=== PATIENT | female | born 1995 | race African-American/Black ===

== ENCOUNTER 2019-11-18 13:36 | Inpatient (IN) | payer OTHER, SELFPAY ==
[2019-11-18] VITALS (66 sets, daily range): BP systolic 97–165; BP diastolic 63–110; PULSE 56–165; RESP 18; TEMP 36.5–37; O2SAT 93–100; BMI 36.8
--- NOTE | ~2019-11-18 | US_ITS ---
EXAMINATION: US OB follow up w BPP DATE: 11/18/2019 15:35 INDICATION: Third trimester . Evaluate weight, presentation, growth percentile and bio physical profile. TECHNIQUE: Real-time pelvic ultrasound was performed. The interpreting radiologist was not present fo r the study. COMPARISON: None. FINDINGS: There is a single living fetus in vertex presentation. The placenta is anterior. heart rate is 133 beats per minute (bpm). Oligohydramnios with amniotic fluid index of 3.9 cm which is greater malinda n 3 standard deviations below the mean. (2.5th%-97.5%: 6.4-25.5 at 39 weeks estimated gestational age ) Biophysical profile performed by the technologist: breathing (30 sec sustained breathing in 30 minutes): 2 out of 2 movement (3 gross body movements in 30 minutes): 2 out of 2 tone (one episode of yrjmygs-zerxzplzi-cfvdjoh limb movement): 2 out of 2 Amniotic fluid pocket (2 cm): 2 out of 2 Total score: 6 out of 8 IMPRESSION: 1. Single living fetus in vertex presentation with heart rate of 133 bpm. 2. Oligohydramnios with amniotic fluid index of 3.9 cm. Correlate for leaking fluids. 3. Biophysical profile 8 out of 8. Reviewed, dictated and finalized at location B. IMPRESSION: 1. Single living fetus in vertex presentation with heart rate of 133 bpm. 2. Oligohydramnios with amniotic fluid index of 3.9 cm. Correlate for leaking f luids. 3. Biophysical profile 8 out of 8.
[2019-11-18 16:07] LABS: Add Urine Microscopic? YES; Appearance Urine Cloudy (Clear); Bacteria Urine 4+ /hpf; Bilirubin Urine Negative (Negative); Blood Urine Negative (Negative); Color Urine Yellow (Yellow); Glucose Urine UA Negative (Negative); Ketones Urine Trace mg/dL (Negative); Leukocyte Esterase Ur 3+ LEU/UL (NEGATIVE); Mucus Urine Rare /lpf; Nitrate Urine Negative (Negative); Protein Urine Negative (Negative); Specific Grav Ur 1.011 (1.001-1.035); Squamous Epithelial Cell Urine Many /hpf (Few); Urobilinogen Urine Negative mg/dL (<2.0)
[2019-11-18 16:25] LABS: Basophils Percent Auto 0.3 % (0.2-1.2); Eosinophils Absolute Auto 0.1 K/mm3 (0-0.3); Eosinophils Percent Auto 0.8 % (0-4.4); Hematocrit 37.1 % (37.0-47.0); Hemoglobin 11.5 g/dL (12.0-15.0); Immature Granulocyte Absolute 0.03 K/mm3 (0.00-0.031); Immature Granulocyte Percent A 0.4 % (0-0.5); Immature Platelet Fraction Pct 3.6 % (0.9-11.2); Lymphocytes Absolute Auto 1.34 K/mm3 (0.9-3.2); Lymphocytes Percent Auto 18.1 % (18.3-44.2); Mean Corpuscular Hemoglobin 21.2 pg (26-34); Mean Corpuscular Volume 68.3 fl (80-100); Mean Platelet Volume 10.9 fl (7.4-10.4); Monocytes Absolute Auto 0.4 K/mm3 (0.1-0.6); Neutrophils Absolute Auto 5.5 K/mm3 (1.3-6.7); Neutrophils Percent Auto 74.4 % (45.5-73.1); Platelet Count Result 242 k/mm3 (150-375); Red Blood Count 5.43 M/mm3 (4.2-5.4); White Blood Count 7.4 K/mm3 (4.5-10.0)
[2019-11-18 16:32] LABS: Creatinine Urine 76.2 mg/dL; Total Protein Urine Random 13 mg/dL
[2019-11-18 16:37] LABS: Alanine Aminotransferase 14 U/L (4-35); Albumin Level 3.5 g/dL (3.5-5.1); Alkaline Phosphatase 155 U/L (38-126); Anion Gap 5 mmol/L (8-16); Aspartate Amino Transferase 17 U/L (14-36); Bilirubin,Total 0.3 mg/dL (0.2-1.3); Blood Urea Nitrogen 6 mg/dL (7-17); Calcium 8.8 mg/dL (8.4-10.2); Carbon Dioxide 22 mmol/L (22-30); Chloride 108 mmol/L (98-107); Estimated Glomerular Filt Rate > 60; Glucose 77 mg/dL (65-105); Potassium 3.7 mmol/L (3.4-5.0); Sodium 135 mmol/L (137-145); Uric Acid 6.3 mg/dL (2.5-7.5)
--- NOTE | 2019-11-18 16:57 | LDADM ---
This patient, Aishwarya Robledo, was admitted to Labor/Delivery/Recovery 105 on 11/18/19 at 13:36. Plans for labor, pain management and were discussed with patient. Patient/family oriented to hospital policies and general routines including ID bracelet, bed and alarms, visiting hours, pain management, procedures, bathroom and other care routines, personal items, smoking policy, room service/diet and guest tray routines, security routines, and visiting hours. Patient/Family are encouraged to report perceived risks to care and to ask questions if they do not understand what they are told or what they should do. See OBIX for further documentation.
--- NOTE | 2019-11-18 16:57 | PC.NURSE ---
1458- called,informed pt is here for her NST and BPP and her bp's are running 150's/90's. Orders received to do PIH labs with intention to induce labor tonight and order EFW with BPP.
[2019-11-18 17:17] LABS: HIV 1/2 Ab P24 Ag Result Negative (Negative)
--- NOTE | 2019-11-18 17:33 | PC.NURSE ---
1733-US tech called to inform the US report is different then the written results we were given, informed the DR disagreed with leif and the BPP score is 8/8. Will notify
--- NOTE | 2019-11-18 17:35 | PC.NURSE ---
8993- called, informed BPP is 8/8 with a score of 0 for amniotic fluid, plans made to induce pt tonight will come over after office to discuss with patient and verify presentation.
[2019-11-18] MEDS: LACTATED RINGERS 1,000 ML 125 ML IV CONT (18:00)
--- NOTE | 2019-11-18 18:01 | PM.IMHP ---
H&P: HPI History of Present Illness Date/Time: 11/18/19 18:01 Chief complaint: NST Narrative: Aishwarya Robledo is a 23 year old female with Learning disability G1 at 39.3 weeks with h/o BHASKAR/ sga/abn gct normal gtt 3hr sent for eval of [facility] with labs and [id number] Review of Systems Review of Systems: All systems reviewed & are unremarkable except as noted in HPI and below Constitutional: Constitutional: Reports no additional constitutional complaints Eyes: Eyes: Reports no additional eye complaints ENT: Reports system reviewed and no additional complaints, except as documented Cardiovascular: Cardiovascular: Reports no additional cardiovascular complaints Respiratory: Respiratory: Reports no additional respiratory complaints Gastrointestinal: Gastrointestinal: Reports no additional gastrointestinal complaints Genitourinary: Genitourinary: Reports no additional female genitourinary complaints Musculoskeletal: Musculoskeletal: Reports no additional musculoskeletal complaints Integumentary/Breasts: Skin/Breast: Reports system reviewed and no additional complaints, except as docu Neurologic: Reports system reviewed and no additional complaints, except as documented Psychiatric: Psychiatric: Reports no additional psychiatric complaints Endocrine: Endocrine: Reports no additional endocrine complaints Hematologic/Lymphatic: Hematologic/Lymphatic: Reports no additional hematologic/lymphatic complaints Allergic/Immunologic: Allergic/Immunologic: Reports no additional allergic/immunologic complaints [facility] Family History Family History Mother Diabetes mellitus GERD (gastroesophageal reflux disease) Grandparent Renal failure CHF (congestive heart failure) Other Unknown family medical history Social History Social History (Updated 11/18/19 @ 18:15 by Kash Ellington MD) Smoking status: Never smoker Second hand tobacco smoke exposure: No Alcohol intake: never Substance use: never Living arrangements: with family Occupation/Education: unemployed Gender identity (if verbalized by the patient): Female Sexual Orientation (if Verbalized by the Patient): Straight or Heterosexual Spiritual care concerns: No Agree to blood products: Yes Meds Home Medications and Allergies Home Medications Medication Instructions Recorded Confirmed Type No Home Medications 11/18/19 11/18/19 History Allergies Allergy/AdvReac Type Severity Reaction Status Date / Time No Known Allergies Allergy Mild Verified 04/20/09 11:23 Vital Signs Vital Signs - 24 hr 11/18/19 14:35 11/18/19 16:46 11/18/19 17:00 Temperature 98.6 F Pulse Rate 79 109 H Blood Pressure 153/110 H Blood Pressure [Left Arm] 152/94 H 11/18/19 17:01 11/18/19 17:16 11/18/19 17:31 Temperature Pulse Rate 93 81 83 Blood Pressure 152/94 H 162/85 H 162/88 H Blood Pressure [Left Arm] 11/18/19 17:46 11/18/19 18:01 Temperature Pulse Rate 79 88 Blood Pressure 154/88 H 165/91 H Blood Pressure [Left Arm] Exam Const: General: no acute distress HENMT: Head: normal to inspection Ears: hearing grossly normal bilaterally General nose exam: Normal external nose present Face and sinus: normal facial exam Mouth: Yes Normal oral and palatal mucosa present Eyes: General: appearance normal, both eyes and all related structures Neck: Neck: no JVD Chest: Chest palpation & inspection: normal inspection of the chest Breast/axilla inspection: normal inspection of the breasts Breast/axilla palpation: normal palpation of the breasts Resp: Effort & Inspection: normal respiratory effort Auscultation: clear to auscultation bilaterally Cardio: Rate: regular rate Rhythm: regular rhythm GI: Inspection: normal to inspection GI Palp: Yes Soft to palpation Percussion: Yes normal to percussion Auscultation: normal bowel sounds : External Fem
--- NOTE | 2019-11-18 18:13 | WPDANESEPPF ---
Anes - Initial Pre Proc Eval Procedure: C section Date/Time: 11/18/19 18:13 Surgeon: Kash Ellington MD Pre Op Diagnosis: NST Patient Data Age: 23 Gender: F Height: 1.73 m Weight: 110 kg Last Vital Signs Temp 37.0 C 11/18/19 17:00 Pulse 88 11/18/19 18:01 BP 165/91 H 11/18/19 18:01 Allergies Allergy/AdvReac Type Severity Reaction Status Date / Time No Known Allergies Allergy Mild Verified 04/20/09 11:23 Home Medications Medication Instructions Recorded Confirmed Type No Home Medications 11/18/19 11/18/19 History Laboratory Tests 11/18/19 11/18/19 11/18/19 15:44 15:44 15:44 WBC 7.4 K/mm3 K/mm3 (4.5-10.0) RBC 5.43 M/mm3 H M/mm3 (4.2-5.4) Hgb 11.5 g/dL L g/dL (12.0-15.0) Hct 37.1 % % (37.0-47.0) MCV 68.3 fl L fl (80-100) MCH 21.2 pg L pg (26-34) MCHC 31.0 g/dl L g/dl (32-36) RDW 19.0 % H % (11.5-14.5) Plt Count 242 k/mm3 k/mm3 (150-375) MPV 10.9 fl H fl (7.4-10.4) Immature Gran % (Auto) 0.4 % % (0-0.5) Neut % (Auto) 74.4 % H % (45.5-73.1) Lymph % (Auto) 18.1 % L % (18.3-44.2) [place] % (Auto) 6.0 % % (2.6-8.5) Eos % (Auto) 0.8 % % (0-4.4) Baso % (Auto) 0.3 % % (0.2-1.2) Lymph # (Auto) 1.34 K/mm3 K/mm3 (0.9-3.2) [place] # (Auto) 0.4 K/mm3 K/mm3 (0.1-0.6) Eos # (Auto) 0.1 K/mm3 K/mm3 (0-0.3) Baso # (Auto) 0.0 K/mm3 K/mm3 (0.0-0.1) Abs Immat Gran (auto) 0.03 K/mm3 K/mm3 (0.00-0.031) Absolute Neuts (auto) 5.5 K/mm3 K/mm3 (1.3-6.7) Absolute Nucleated RBC 0.0 K/mm3 K/mm3 (0.0-0.012) Nucleated RBC % 0.0 % % (0.0-0.2) % Immature Plt Fraction 3.6 % % (0.9-11.2) Sodium Potassium Chloride Carbon Dioxide Anion Gap BUN Creatinine Estim Creat Clear Calc Estimated GFR Glucose Uric Acid Calcium Total Bilirubin AST ALT Alkaline Phosphatase Total Protein Albumin Urine Color Yellow (Yellow) Urine Appearance Cloudy H (Clear) Urine pH 6.0 (5.0-9.0) Ur Specific [place] 1.011 (1.001-1.035) Urine Protein Negative mg/dL mg/dL (Negative) Urine Glucose (UA) Negative mg/dL mg/dL (Negative) Urine Ketones Trace mg/dL mg/dL (Negative) Ur Blood (Man) Negative (Negative) Urine Nitrate Negative (Negative) Urine Bilirubin Negative (Negative) Urine Urobilinogen Negative mg/dL mg/dL (<2.0) Ur Leukocyte Esterase 3+ JAVON/UL H JAVON/UL (NEGATIVE) Urine RBC 3-5 /hpf H /hpf (0-2) Urine WBC 10-15 /hpf H /hpf (0-3) Ur Squamous Epith Cells Many /hpf H /hpf (Few) Urine Bacteria 4+ /hpf H /hpf Urine Mucus Rare /lpf /lpf U Random Total Protein 13 mg/dL mg/dL Urine Creatinine 76.2 mg/dL mg/dL RPR HIV 1&2 Ab/P24 Ag 4thGn Blood Type Antibody Screen 11/18/19 11/18/19 11/18/19 15:44 15:44 15:44 WBC RBC Hgb Hct MCV MCH MCHC RDW Plt Count MPV Immature Gran % (Auto) Neut % (Auto) Lymph % (Auto) [place] % (Auto) Eos % (Auto) Baso % (Auto) Lymph # (Auto) [place] # (Auto) Eos # (Auto) Baso # (Auto) Abs Immat Gran (auto) Absolute Neuts (auto) Absolute Nucleated RBC Nucleated RBC %
--- NOTE | 2019-11-18 18:20 | PM.OBPNLAB ---
Pain Control Date/time seen: 11/18/19 18:20 Comments: 23yo AAF G1 with PIH and SGA found to have compound presentation Pelvic Exam Dilation (cm): 0 Effacement (%): 0 station: -4 Amniotic membrane status: Intact Comments: ultrasound at bedside COMPOUND presentation Hand above head with CAN unstable lie Contractions Monitor mode: None Status status: Category l Assessment and Plan Assessment: other (Compound presentation at 39 weeks with PIH) Plan: (primary) and other (spinal)
--- NOTE | 2019-11-18 18:24 | WPDHPUPDATE1 ---
History and Physical Update Update Date/Time: 11/18/19 18:24 History and Physical has been reviewed, including an updated exam of the patient. There are NO changes in the patient's condition. Risks, benefits, and alternatives have been discussed and questions answered. Patient agrees to proceed with procedure. Primary c section under spinal for Compound presentation
[2019-11-18] MEDS: ceFAZolin 2 GM/D5W 50 ML 2 GM/50 ML BAG IVPB (18:35)
[2019-11-18] MEDS: diphenhydrAMINE HCl INJ 50 MG/ML VIAL 12.5 MG IV PUSH (20:09)
--- NOTE | 2019-11-18 20:35 | PM.OBPRVD ---
OB - Delivery Note Procedure Delivery date: 11/18/19 Procedure: Procedures Operation Date: 11/18/19 18:00 Actual Procedures Side Surgeon p Section Kash Ellington MD Intrapartal events: Abnormal Presentation Delivery monitor: external FHT and external uterine Route of delivery: Specimen: Yes Estimated blood loss (mL): 610 Anesthesia type: Spinal Disposition: floor Baby Date of : 11/18/19 Time of : 18:49 Weeks of gestation at delivery: 39 gender: Male Weight (pounds): 7 Weight (ounces): 4 presentation: vertex (compound hand above head ) position: Left Occiput Transverse Placenta delivery description: Manual Removal cord vessel description: 3 Vessels and Nuchal Cord score one minute: 8 score five minutes: 9
--- NOTE | 2019-11-18 20:39 | PM.PROC ---
Procedure Note - Detailed Date of procedure: 11/18/19 Pre-op diagnosis: NST Term SGA Malpresentation compound hand above head bordeerline intellectual disability BHASKAR Post-op diagnosis: same (delivered male ) Procedure performed: Primary Low transverse c section with delivery of viable male and placenta Description of procedure: Patient was taken to the operating room after informed consent obtained and she was given a spinal anesthetic. Lane catheter was inserted and the abdomen was prepped and draped in usual sterile fashion and a time-out was performed. The abdomen was checked with an Allis clamp and adequate anesthesia was noted. A Pfannenstiel incision was then made to the skin and the abdomen was opened in layers using electrocautery for hemostasis the fascia was extended bilaterally and undermined inferiorly and superiorly with electrocautery and the rectus muscles were then in the midline. The peritoneum was incised and extended inferiorly and superiorly and then a transverse incision was made to the lower uterine segment. Sarah clamp was then used to open the uterus and clear fluid was obtained compound Presentation was identified and and the arm and hand were swept across the chest anteriorly and the vertex was then delivered via the abdominal incision. nuchal cord x1 was reduced Nose and Throat bulb suction cord was clamped and cut and the was handed to the nursery nurse in attendance scores of 8 and 9 at 1 and 5 minutes spontaneous respirations and cry of the viable male infant delivered at 6:49 p.m. weight 7 lb 4 oz 20 in long taken to the nursery in stable condition. Section of the cord was then obtained for cord gases and cord blood was obtained and the placenta was then delivered intact with a three-vessel cord and the uterus contracted well with Pitocin given intravenously and 10 units in the uterus myometrium. The uterus was externalized blood clots and membranes removed from the intrauterine cavity hemostasis excellent. The uterine incision was then repaired in 2 layers with 0 Vicryl suture in a running interlocking fashion with the 2nd being an imbricating stitch. Irrigation was then performed blood clots removed from the cul-de-sac both lateral gutters and the uterus was returned to the peritoneal cavity. The sponge needle and instrument counts were correct and the anterior peritoneum and rectus muscles were reapproximated with 0 Vicryl suture in a running fashion. The fascia was then closed with 2. Quill SRS system bilaterally. Jose M's fascia was reapproximated with 2 O plain in a running fashion and then the skin was closed with absorbable oriana called insorb. Dermabond was used to the skin and a sterile dressing was applied and the patient was taken to the recovery room in stable condition. The sponge needle and instrument counts correct patient tolerated procedure well Anesthesia: spinal Surgeon: Kash Ellington MD Quill Winder: surgical nurse practitioner Estimated blood loss (mL): 610 IV fluids (mL): 1,400 Urine output (mL): 350 Drains: No Packing: No Pathology: yes (placenta, cbg's, cord blood) Complications: None Condition: stable Disposition: floor Findings: viable male at 1849 apgars 8+9 wt 7-4 length 20in placenta intact 3 vessel cord uterus tubes and ovaries normal or rm 2; scd for vte; antibiotics ancef 2 grams; counts correct;
[2019-11-18] MEDS: OXYTOCIN 30 UNITS/NS 500 ML 30 UNITS/500 ML BAG 125 UNITS IV CONT (21:12)
[2019-11-19] VITALS (8 sets, daily range): BP systolic 134–159; BP diastolic 78–93; PULSE 70–107; RESP 16–18; TEMP 36.3–37.4; O2SAT 100
[2019-11-19] MEDS: KETOROLAC 30 MG/ML VIAL (*BKC) IV PUSH ×4 (00:25→18:38)
[2019-11-19] MEDS: DEXTROSE 5%/0.45% SOD CHL 1,000 ML 125 ML IV CONT (01:24)
[2019-11-19 05:53] LABS: Basophils Percent Auto 0.3 % (0.2-1.2); Eosinophils Absolute Auto 0.1 K/mm3 (0-0.3); Eosinophils Percent Auto 0.7 % (0-4.4); Hematocrit 29.5 % (37.0-47.0); Immature Granulocyte Absolute 0.03 K/mm3 (0.00-0.031); Immature Granulocyte Percent A 0.4 % (0-0.5); Lymphocytes Absolute Auto 1.32 K/mm3 (0.9-3.2); Lymphocytes Percent Auto 18.8 % (18.3-44.2); Mean Corpuscular HGB Conc 30.5 g/dl (32-36); Mean Corpuscular Hemoglobin 20.9 pg (26-34); Mean Corpuscular Volume 68.4 fl (80-100); Mean Platelet Volume 10.6 fl (7.4-10.4); Monocytes Absolute Auto 0.5 K/mm3 (0.1-0.6); Monocytes Percent Auto 6.6 % (2.6-8.5); Neutrophils Absolute Auto 5.1 K/mm3 (1.3-6.7); Neutrophils Percent Auto 73.2 % (45.5-73.1); Platelet Count Result 199 k/mm3 (150-375); Red Blood Count 4.31 M/mm3 (4.2-5.4); Red Cell Distribution Width 17.2 % (11.5-14.5)
[2019-11-19 07:29] LABS: Rapid Plasma Reagin Non-Reactive (NonReactive)
--- NOTE | 2019-11-19 07:40 | WPDANLDNPN2 ---
Anes-Prog Note L&D-Neuraxial Date/Time: 11/19/19 07:40 Neuraxial medications: intrathecal PF morphine Opiod-related complaints: none Patient feedback: Patient satisfied with post-operative pain management.
--- NOTE | 2019-11-19 07:40 | WPDANLDPN2 ---
Anes-Prog Note L&D Date/Time: 11/19/19 07:40 Comfortable throughout: section Neuraxial method: spinal Epidural/Spinal procedure site: clean & non-tender Neuro status: Neuro function grossly intact. Cardiovascular status: normal Respiratory status: normal Airway patency: baseline Mental status: baseline Post-Op hydration status: normal Vital Signs: Last Vital Signs Temp 36.4 C L 11/19/19 04:30 Pulse 102 H 11/19/19 04:30 Resp 18 11/19/19 04:30 BP 148/78 H 11/19/19 04:30 Pulse Ox 100 11/19/19 04:30 I/O: Intake & Output 11/18/19 11/18/19 11/19/19 15:59 23:59 07:59 Intake Total 1150 600 Output Total 887 500 Balance 263 100 Post-procedural complaints: none Patient feedback: Patient satisfied with anesthetic care.
[2019-11-19] MEDS: MULTIVIT/MIN/PREN/FOL AC/IRON TABLET 1 TAB PO (09:04)
[2019-11-19] MEDS: DOCUSATE SODIUM 100 MG CAPSULE PO ×2 (09:04→17:56)
[2019-11-19] MEDS: POLYSACCHARIDE IRON COMPLEX 150 MG CAPSULE PO ×2 (09:04→17:56)
--- NOTE | 2019-11-19 13:00 | PCCCNOTE ---
Spoke with pt. this morning to discuss discharge planning. Pt.'s current discharge plan is to return home with her mother. Pt. states that her mother is supportive and they have everything they need to safely bring the baby home. GERRY lives in town with his parents but states that he works very close to the pt.'s home and he will be over to assist with the baby. GERRY appears to also be very supportive and was being appropriate with the baby while CC was in the room. Pt. confirms she has started WIC application and will bottle feed baby at time of discharge. Pt. denies any discharge needs at this time and will bring in her car seat to have RN examine. Pt. has been provided resources for any further assistance. No further need for CC services at this time.
[2019-11-19] MEDS: TETANUS,DIPHTHERIA,AC PERTUSSIS ADULT (0.5 ML) BOOSTRIX IM (18:39)
[2019-11-20] MEDS: IBUPROFEN 600 MG TABLET PO ×4 (00:30→18:34)
[2019-11-20] MEDS: POLYSACCHARIDE IRON COMPLEX 150 MG CAPSULE PO ×2 (07:17→16:22)
[2019-11-20] MEDS: DOCUSATE SODIUM 100 MG CAPSULE PO ×2 (07:17→16:22)
[2019-11-20 08:05] VITALS: BP 144/80; PULSE 93; RESP 16; TEMP 36.8; O2SAT 100
[2019-11-20] MEDS: MULTIVIT/MIN/PREN/FOL AC/IRON TABLET 1 TAB PO (13:07)
--- NOTE | 2019-11-20 15:19 | PM.OBPNVD ---
OB - PN: Subj Subjective Date/time seen: 11/19/19 18:19 Patient comments: no complaints, pain well controlled and flatus present [place] baby status: doing well [place] feeding status: exclusively bottle feeding OB - PN: Obj Data Labs CBC & Chem 7: 11/19/19 04:56 11/18/19 15:44 OB - PN A/P Assessment and Plan (1) Term delivered: Code(s): O80 - Encounter for full-term uncomplicated delivery Status: Acute (2) Delivery by section: Status: Acute Time Spent With Patient Time: Total time spent is greater than 50% in coordination of care (as documented) at patient's floor/unit and/or counseling patient: Review of Systems Review of Systems: All systems reviewed & are unremarkable except as noted in HPI and below Exam Const: General: comfortable, no acute distress, alert and awake Chest: Breast/axilla inspection: normal inspection of the breasts Resp: Effort & Inspection: normal respiratory effort Cardio: Rate: regular rate GI: Auscultation: normal bowel sounds : General: Yes bladder normal to inspection and Yes no CVA tenderness Psych: Appearance: grossly normal Mental Status: mental status grossly normal Attitude: cooperative
--- NOTE | 2019-11-20 15:22 | PM.OBDSVD ---
DS: Admitting Diagnosis Admitting Diagnosis Admitting Diagnosis: NST Term FGR PIH Compound presentation Oligohydramnios DS: Discharge Diagnosis Discharge Diagnosis (1) Compound presentation of fetus: Code(s): O32.6XX0 - Maternal care for compound presentation, not applicable or unspecified Status: Acute (2) Delivery by section: Status: Acute (3) Term delivered: Code(s): O80 - Encounter for full-term uncomplicated delivery Status: Acute (4) PIH ( induced hypertension): Code(s): O13.9 - Gestational [-induced] hypertension without significant proteinuria, unspecified trimester Status: Acute (5) Anemia affecting : Code(s): O99.019 - Anemia complicating , unspecified trimester Status: Acute (6) Learning disabilities: Code(s): F81.9 - Developmental disorder of scholastic skills, unspecified Status: Acute (7) BHASKAR (generalized anxiety disorder): Code(s): F41.1 - Generalized anxiety disorder Status: Acute OB - DS: Summary Hospital Course Time spent discussing smoking cessation with patient: 3 to 10 minutes OB Procedures : NST and Ultrasound OB Procedures Intrapartum: OB Procedures: : None Peripartum Data Delivery Method: Section Procedures: Procedures Operation Date: 11/18/19 18:00 Actual Procedures Side Surgeon p Section Kash Ellington MD complications: none [place] 1: Gender: Male Disposition of : home Status at Discharge Functional status at discharge: independent ambulation Overall status at discharge: patient is back to baseline Time Spent with Patient Time attestation: Total time spent providing and/or coordinating discharge services: Time spent: Less than 30 minutes Exam Const: General: comfortable, no acute distress, alert and awake Orientation/consciousness: patient oriented x3 Limitations: no limitations Chest: Breast/axilla inspection: normal inspection of the breasts Resp: Effort & Inspection: normal respiratory effort Cardio: Rate: regular rate GI: GI Palp: Yes Soft to palpation Percussion: Yes normal to percussion Auscultation: normal bowel sounds : General: Yes bladder normal to inspection and Yes no CVA tenderness Psych: Appearance: grossly normal Mental Status: mental status grossly normal Attitude: cooperative Thought content: Yes Normal thought content present Judgement: Good judgement present (Psych) DS: Data Data Completed and Pending Pending studies at discharge: Pending at discharge 11/18/19 18:50 Surgical [PTH] Routine Discharge Plan Discharge Attending physician on discharge: Kash Ellington Discharging Clinician: Kash Ellington Anticipated Discharge Date/Time: 11/21/19 15:25 Patient Disposition: Home, Self-Care Activity: may shower, no straining and may drive after 2 weeks Diet: as tolerated and regular Wound Care Instructions: follow printed instructions Discharge Instructions: routine Patient Instructions: Antibiotic Form Stand Alone Forms: General Discharge Information Follow-up/Referrals: Kash Ellington MD [Physician] - Discharge Medications: New hydrocodone-acetaminophen 5-325 mg Tablet 1 tab PO Q6H PRN (Reason: Moderate Pain (4-6)) Qty: 20 RF: 0 ibuprofen 600 mg Tablet 600 mg PO Q6H Qty: 90 RF: 1 KPN Tablet 1 tab PO DAILY Qty: 100 RF: 3 polysaccharide iron complex 150 mg iron Capsule 150 mg PO BIDWM Qty: 100 RF: 4 No Action No Home Medications RF: 0 Date of admission: 11/18/19 13:36 Primary Care Provider: PHYSICIAN,HIGH REACH OPERATOR Admitting Provider: Kash Ellington Attending physician on admission: Kash Ellington
--- NOTE | 2019-11-20 20:27 | PC.NURSE ---
1615 with pt's permission, pt's mother was called, and nurse talked to her; pt's mother aware pt and baby will be discharged home today. Pt's mother states she will be present in the home. She was told pt will have a prescription for pain medication; also that pt will have an appointment for in the morning at 1000 (patient will have this in writing), and baby will be seen as well. Pt's mother agree that pt OK to have her flu shot prior to discharge home. She was also advised that baby has been a little spitty with feedings and to be observant of that. She was told that pt has all of her discharge instructions in writing with her to take home. She verbalized understanding.
[2019-11-21 10:25] VITALS: BP 148/86; PULSE 73; RESP 22; TEMP 36.6; O2SAT 99
== END 2019-11-20 19:07 | disposition home or self-care (01) | DRG 540 ==
LOC: ANHOBOP 16:51 → ANHLDR 16:52 → ANHOB2 11-19 00:07
PROVIDERS: Admitting Provider Obstetrics & Gynecology; Visit Provider Obstetrics & Gynecology
PROC: 10D00Z1 Extraction of Products of Conception, Low, Open Approach (ICD-10-PCS; CPT 59514; principal; 2019-11-18 18:00)
DX: O13.4 Gestational [pregnancy-induced] hypertension without significant proteinuria, complicating childbirth (principal); Z37.0 Single live birth; Z3A.39 39 weeks gestation of pregnancy; O41.03X0 Oligohydramnios, third trimester, not applicable or unspecified; O32.6XX0 Maternal care for compound presentation, not applicable or unspecified; O32.0XX0 Maternal care for unstable lie, not applicable or unspecified; Z23 Encounter for immunization; O99.344 Other mental disorders complicating childbirth; F41.1 Generalized anxiety disorder; F81.9 Developmental disorder of scholastic skills, unspecified; D64.9 Anemia, unspecified; O75.3 Other infection during labor; B96.89 Other specified bacterial agents as the cause of diseases classified elsewhere; N76.0 Acute vaginitis; O99.02 Anemia complicating childbirth; O99.214 Obesity complicating childbirth; E66.9 Obesity, unspecified; O69.81X0 Labor and delivery complicated by cord around neck, without compression, not applicable or unspecified
CPT/HCPCS: 36415; 59025; 76816; 76819; 80053; 81001; 82570; 84156; 84550; 85025; 85055; 86592; 86703; 86850; 86900; 86901; 87086; 87088; 88307; 90471; 90686; 90715; A9270; G0008; G0432; J0690; J1200; J1885; J2274; J2405; J2590; J7120